=== PATIENT | male | born 1990 ===

== ENCOUNTER 2020-06-15 08:30 | Outpatient (RCR) | payer OTHER, SELFPAY ==
[2020-06-06 12:02] VITALS: BMI 22.4
--- NOTE | 2020-06-06 12:22 | PC.ADMIT ---
Patient is a 29 year old male who started the [facility] program today on the advise of his psychiatrist and therapist d/t hx of mood instability. Patient has a dx of Bipolar 1 and reports he is recently depresssed. Prior to this patient reports having a manic episode which included psychosis. 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 Patient reports that he was smoking marijuana throughout the day to cope with how he was feeling starting in late December-Mid May. Regarding ETOH use patient stated he typically would drink 1-2 drinks per week however within this past year he reported 2 episodes of binge drinking one on and the other on . Patient stated his first day at the program is going well. Denied SI. Stated he is here because, I had been abusing marijuana since December and my mood stability started to slip with more stress in my life cycling between brooks and depression . Patient gave verbal permission to email him a copy of his safety plan. Medications reconciled with patient and patients pharmacy. He reports taking medications as prescribed including Seroquel which patient stated he takes anywhere from 200-400 mg per night depending on how he is feeling and sleep issues. He stated his prescriber is aware. Patient stated he is sleeping well getting 8-9 Hrs a night.
--- NOTE | 2020-06-06 20:38 | HO.PS.ADMBH ---
HPI Chief Complaint: depression Sources of Information: patient interviewed and chart reviewed HPI Narrative: Patient is a 29 year old male with diagnosis of bipolar disorder presenting to [facility] with mood lability. Patient reports he was diagnosed with mood disorder in 2019 during psychiatric admission for [facility]. Step down to [facility] following this admission and found it beneficial. He reports that he has been cycling since December and was smoking a lot of marijuan to manage his sx, which in retrospect may have been exacerbating them. He stoppes smoking marijuana on and he has noted a significant improvement in his sx since that time. He is engaged in outpt treatment and has been on Lamictal 150mg QD and Seroquel for about a year and he feels this combination effective. He takes btwn 200-600mg of seroquel depending on his hypomania sx (agreed upon with psychiatrist). Most recent medication change is change from mirtazipine to prozac QD in december (d/t sedation with mirtazipine) Past Psychiatric History: 2019 [facility] and [facility] psychiatric providers at [facility] History (Updated 06/06/20 @ 13:10 by Christina Schuler RN) Hx of hernia repair Social History: Lives with cousin Substance History: daily marijuana use (no use since 05/2020) Trauma History: not reviewed, though documented in admission eval Diagnostics Vital Signs (24Hr): Body Mass Index 22.4 Meds/Allergies Allergies Allergies Allergy/AdvReac Type Severity Reaction Status Date / Time No Known Allergies Allergy Verified 06/06/20 12:20 Mental Status Exam Mental Status Exam Patient Appearance: Well Grooomed Patient Orientation: Person, Place, Time and Situation Level of Consciousness: Awake, Appropriate and Alert Patient Behavior: Appropriate and Cooperative Mood Description: Cheerful Affect Description: Cheerful Speech Pattern: Clear Hallucinations: None Delusions: Not Present Thought Process: Goal Oriented Thought Content: positive for Circumstantial Judgement: Fair Assessment & Plan Assessment & Plan (1) Bipolar 1 disorder: Status: Acute Code(s): F31.9 - Bipolar disorder, unspecified Assessment and Plan: patient working closely with outpatient provider, no medication changes appropriate at this time relapse prevention discussion follow up PRN Certification I certify that partial hospital treatment is medically necessary due to the symptoms and problems resulting from the patient's mental illness and the failure to treat the patient at the partial hospital level of care would likely result in the patient requiring inpatient psychiatric care which could not be prevented at a less intensive level of care. Telehealth Telehealth Location of provider rendering services: practice address Location of patient: address on file Patient Identification confirmed using: Name, : Yes Telehealth method: video Patient verbally consented to treatment: Yes Patient verbally consented to billing insurance company: Yes Time spent with patient (mins): 22
--- NOTE | 2020-06-08 14:40 | PC.NURSE ---
I called and spoke to pt about schedule and treatment. He said he is doing well in the program, and that he feels safe and comfortable. He wants to discharge from [facility] next 06/15/20, as he is studying for the bar exam, provided he feels stable enough at that time. He is happy with his outpatient treaters. Discussed options for groups for followup. I referred him to [email or web address] and to [facility] online. He would also like a DBT group, and I agreed to look into a referral to the DBT program at [facility].
--- NOTE | 2020-06-13 10:03 | PC.NURSE ---
As pt requested, I called [facility] to refer pt to a weekly DBT coping skills group. I spoke to Dr. Qi Mcgowan, who said she runs a DBT group with a visual art component. She gave me the number for Yue Warren [facility] ([phone]) at [facility] (also [facility]). She said Yue also runs a weekly DBT group but with no art component. I called and left Yue a message asking about her group and referral process, and if there are openings.
--- NOTE | 2020-06-13 21:33 | HO.PHPPROGNO ---
Subjective Subjective Date of Service: 06/14/20 Reason For Visit: depression Interim History: Pt reports decreased symptoms of depression. He reports groups have been helpful to reframe how I see my problems. He reports he feels more supported. He denies suicidal or homicidal ideation. He reports feeling less overwhelmed and less hopeless about his future. He reports taking medications as prescribed. He reports sleeping and eating well. No VH/AH. No side effects noted or reported. Medication Compliance: Yes Side effects from medications: No Attending Groups: Yes Review of Systems Acute medical concerns: No Medical Review of Systems: unchanged Review of Systems Constitutional: Reports no additional constitutional complaints Cardiovascular: Reports no additional cardiovascular complaints Respiratory: Reports no additional respiratory complaints Gastrointestinal: Reports no additional gastrointestinal complaints Mental Status Exam Mental Status Exam Patient Appearance: Well Grooomed Patient Orientation: Person, Place, Time and Situation Level of Consciousness: Awake Patient Behavior: Appropriate and Cooperative Mood Description: Calm Affect Description: Calm Patient Cognition Impaired: No Ability to Follow Directions: Excellent Speech Pattern: Clear, Appropriate and Spontaneous Speech (regular rate/rhythm) Memory Description: Intact (grossly intact to conversational testing. ) Hallucinations: None Delusions: Not Present Thought Process: Linear Thought Content: positive for Intact (no signs of psychosis, future oriented) Judgement: Fair Diagnostics Vital Signs (24Hr): Body Mass Index 22.4 Assessment & Plan Assessment & Plan (1) Bipolar 1 disorder: Status: Acute Code(s): F31.9 - Bipolar disorder, unspecified Assessment and Plan: 1. continue current medications. Patient educated on: diagnosis, medication risk/benefits and substance abuse Informed Consent: understands Reason for contiued partial hosp. stay Substantial Risk for: harm to self Certification I certify that partial hospital treatment is medically necessary due to the symptoms and problems resulting from the patient's mental illness and the failure to treat the patient at the partial hospital level of care would likely result in the patient requiring inpatient psychiatric care which could not be prevented at a less intensive level of care. Greater than 50% of the session was spent on counseling and/or coordination of care Discharge Plan Discharge Attending provider: Douglas Blanco Medications: No Action quetiapine [Seroquel] 25 mg Tablet 25 mg PO BID PRN (Reason: Anxiety) RF: 0 lamotrigine [Lamictal] 150 mg Tablet 150 mg PO DAILY RF: 0 quetiapine [Seroquel] 200 mg Tablet See Rx Instructions .ROUTE .COMPLEX RF: 0 fluoxetine [Prozac] 10 mg Capsule 10 mg PO DAILY RF: 0 montelukast 10 mg Tablet 10 mg PO BEDTIME RF: 0 Descovy 200-25 mg Tablet 1 tab PO DAILY RF: 0 Telehealth Telehealth Location of provider rendering services: practice address Location of patient: address on file Patient Identification confirmed using: Name, : Yes Telehealth method: video Patient verbally consented to treatment: Yes Patient verbally consented to billing insurance company: Yes Patient informed of any privacy concerns related to visit: Yes Time spent with patient (mins): 15
--- NOTE | 2020-06-14 14:26 | PC.NURSE ---
I recieved a message from Yue Warren re: DBT group at [facility] in [place]. She said she does have openings. I called and spoke to pt and he is interested in this and gave permission to refer. I called the number that Yue Warren gave me for her cell phone ([phone]), but the VM was full. So, I left her a message on her work phone ([phone], [phone]) and asked her to pls call back.
--- NOTE | 2020-06-15 08:17 | PC.NURSE ---
RM and attempted to LM again for Yue Warren at [facility]. She gave me another personal cell number to reach her ([phone]), which also led to an automated msg stating the VM is full. However, I called and lM on her work phone informing her of this and asking her to pls call.
--- NOTE | 2020-06-15 14:30 | PC.NURSE ---
I called and LM for pt's therapist, Praveen Patel, at [facility], informing him of pt's successful discharge from [facility].
== END 2020-06-15 23:55 | disposition home or self-care (01) ==
LOC: HO.PHPA 08:30
PROVIDERS: Visit Provider Psychiatry & Neurology Psychiatry
DX: F31.30 Bipolar disorder, current episode depressed, mild or moderate severity, unspecified (principal); F10.20 Alcohol dependence, uncomplicated; F12.20 Cannabis dependence, uncomplicated
CPT/HCPCS: 90791; 90853; 99203; 99212